=== PATIENT | female | born 1990 | race Asian ===

== ENCOUNTER 2019-06-02 17:29 | Emergency (ER) | payer BC ==
[~2019-06-02] VITALS: Ht 165.1 cm; Wt 131.0 kg
--- NOTE | 2019-06-02 17:46 | NUR ---
patient had iud mirena placed aug of last year. she stopped bleeding until mid spring. then she has been bleeding the last four weeks continuously and is concerned. she has called her ob. she has right pelvic
--- NOTE | 2019-06-02 17:55 | NUR ---
helped patient to bathroom for urine sample.
[2019-06-02 17:57] LABS: BASOPHILS # (AUTO) 0.11 x10^3/uL (0-0.1); BASOPHILS % (AUTO) 1 % (0-1); EOSINOPHILS % (AUTO) 1 % (1-7); LYMPHOCYTES # (AUTO) 2.89 x10^3/uL (1-3.4); LYMPHOCYTES % (AUTO) 35 % (22-44); MD NO; MEAN CORPUSCULAR HEMOGLOBIN 30.9 pg (27.0-34.8); MEAN CORPUSCULAR HGB CONC 33.7 g/dL (32.4-35.8); MEAN CORPUSCULAR VOLUME 91.8 fL (80-100); MEAN PLATELET VOLUME 8.6 fL (7.4-10.4); MONOCYTES # (AUTO) 0.88 x10^3/uL (0.2-0.8); MONOCYTES % (AUTO) 11 % (2-9); NEUTROPHILS # (AUTO) 4.33 x10^3/uL (1.8-6.8); NEUTROPHILS % (AUTO) 52 % (42-75); PLATELET COUNT 323 x10^3/uL (130-400); RED BLOOD COUNT 4.94 x10^6/uL (3.82-5.3); RED CELL DISTRIBUTION WIDTH 12.8 % (9.6-15.2)
[2019-06-02 18:05] LABS: ALANINE AMINOTRANSFERASE 61 U/L (12-78); ALBUMIN 4.1 g/dL (3.4-5.0); ANION GAP 6 mmol/L (5-15); CALCIUM 9.2 mg/dL (8.5-10.1); CHLORIDE 108 mmol/L (98-107); CREATININE 0.85 mg/dL (0.55-1.02)
[2019-06-02 18:09] LABS: ALKALINE PHOSPHATASE 56 U/L (45-117); BILIRUBIN,TOTAL 0.6 mg/dL (0.2-1.0); TOTAL PROTEIN 8.4 g/dL (6.4-8.2)
[2019-06-02 18:27] LABS: MICROSCOPIC INDICATED
--- NOTE | 2019-06-02 18:33 | NUR ---
patient getting ultrasound at this time. urine sent, it is pink blood tinged urine. clean catch. labeled in her presence
[2019-06-02 18:47] LABS: CULTURE INDICATED? NO
[2019-06-02] MEDS ORDERED: KETOROLAC 60 MG/2 ML ONE (19:10)
[2019-06-02 19:27] VITALS: BP 128/85
--- NOTE | 2019-06-02 19:29 | NUR ---
Assumed care of pt, bedside report recieved, vitals stable. Pt medicated for pain, at bedside, will monitor for improvement, then d/c.
[2019-06-02] MEDS ORDERED: KETOROLAC 30 MG/1 ML IM ONE (19:30)
== END 2019-06-02 19:59 | disposition home or self-care (01) ==
LOC: ED 18:57
DX: N93.9 Abnormal uterine and vaginal bleeding, unspecified (principal); R10.2 Pelvic and perineal pain
CPT/HCPCS: 36415; 76830; 80053; 81001; 84703; 85025; 96372; 99284; J1885